=== PATIENT | female | born 1970 | race Caucasian/White ===

== ENCOUNTER 2018-02-11 12:56 | Day surgery (SDC) | payer MEDICAID ==
[2018-02-11] MEDS: BUPIVACAINE 0.25% (MPF) 30 ML INJ
[~2018-02-11 12:56] MED LIST: ACETAMINOPHEN 1000 MG/100 ML IVPB; CEFAZOLIN 2 GM/50 ML (PMX) 50 ML IVPB; SOD CHLORIDE 0.9% 1,000 ML IV
[2018-02-11] MEDS ORDERED: CEFAZOLIN 1 GM INJ (19:04)
[2018-02-11] MEDS ORDERED: ROPIVACAINE 0.5 % 30 ML VIAL (19:04)
[2018-02-11] MEDS ORDERED: MIDAZOLAM 1 MG/ML 2 ML INJ (19:04)
[2018-02-11] MEDS ORDERED: ROCURONIUM 50 MG INJ (19:04)
[2018-02-11] MEDS ORDERED: PROPOFOL 20 ML (19:04)
[2018-02-11] MEDS ORDERED: POLYMYXIN/BACITRACIN 1L IRRIG (19:10)
[2018-02-11] MEDS ORDERED: DIPHENHYDRAMINE 50 MG INJ IV (19:30)
[2018-02-11] MEDS ORDERED: ONDANSETRON 4 MG INJ IV (19:30)
[2018-02-11] MEDS ORDERED: hydrALAzine 20 MG INJ IV (19:30)
[2018-02-11] MEDS ORDERED: LABETALOL HCL 20MG INJ IV (19:30)
[2018-02-11] MEDS ORDERED: FENTAnyl 50 MCG/ML VIAL IV ×2 (19:30)
[2018-02-11] MEDS ORDERED: METOCLOPRAMIDE 10 MG INJ IV (19:30)
[2018-02-11] MEDS ORDERED: EPHEDrine SULFATE 50 MG/5 ML SYG IV (19:30)
[2018-02-11] MEDS ORDERED: MEPERIDINE 25 MG INJ IV (19:30)
[2018-02-11] MEDS ORDERED: OXYCODONE/ACETAMINOPHEN (5/325) TAB PO ×2 (19:30)
[2018-02-11] MEDS ORDERED: HYDROmorphONE (0.2 MG/ML) 10ML SYG IV ×2 (19:30)
[2018-02-11] MEDS ORDERED: PHENYLephrine (100 MCG/ML) 5ML SYG (20:06)
[2018-02-11] MEDS ORDERED: SUGAMMADEX SODIUM 200 MG/2 ML VIAL IV (20:17)
[2018-02-11] MEDS ORDERED: KETOROLAC 30 MG INJ (20:17)
[2018-02-11] MEDS ORDERED: ONDANSETRON 4 MG INJ (20:17)
[2018-02-11] MEDS ORDERED: DEXAMETHASONE 4 MG/ML 1 ML INJ (20:17)
[2018-02-11] MEDS ORDERED: METOCLOPRAMIDE 10 MG INJ (20:17)
[2018-02-11] MEDS: HYDROCODONE/APAP (5/325) TAB PO (22:06)
[2018-02-11] MEDS: FENTAnyl 50 MCG/ML VIAL IV (22:06)
[2018-02-11] MEDS: HYDROmorphONE (0.2 MG/ML) 10ML SYG IV (22:07)
== END 2018-02-11 22:25 | disposition home or self-care (01) ==
LOC: SDS 12:56
DX: K40.30 Unilateral inguinal hernia, with obstruction, without gangrene, not specified as recurrent (principal); E78.5 Hyperlipidemia, unspecified
CPT/HCPCS: 49650; 84703